=== PATIENT | female | born 1990 | race Hispanic/Latino ===

== ENCOUNTER 2023-02-02 14:31 | Emergency (ER) | payer MEDICAID, OTHER ==
[~2023-02-02] VITALS: Ht 165.1 cm; Wt 84.4 kg
[2023-02-02 15:22] VITALS: BP 157/73
== END 2023-02-02 17:14 | disposition left against medical advice (07) ==
LOC: EDH 14:31
DX: N93.9 Abnormal uterine and vaginal bleeding, unspecified (principal); Z53.21 Procedure and treatment not carried out due to patient leaving prior to being seen by health care provider
CPT/HCPCS: 99281